=== PATIENT | male | born 1930 | race Caucasian/White ===

== ENCOUNTER → 2018-04-14 | Outpatient (CLI) | payer MEDICARE, OTHER | END | disposition home or self-care (01) | LOC: SHCH 11:01 | PROVIDERS: ATTEND Internal Medicine Cardiovascular Disease | DX: I34.0 Nonrheumatic mitral (valve) insufficiency (principal); I25.10 Atherosclerotic heart disease of native coronary artery without angina pectoris; I51.7 Cardiomegaly; Z95.1 Presence of aortocoronary bypass graft | CPT/HCPCS: 93306 ==

== ENCOUNTER → 2018-04-25 | Outpatient (CLI) | payer OTHER ==
[~2018-04-25] MED LIST: REGADENOSON 0.4 MG/5 ML PF SYG IVP SCH
== END | disposition home or self-care (01) ==
LOC: SHCH 08:02
PROVIDERS: ATTEND Internal Medicine Cardiovascular Disease
DX: I25.10 Atherosclerotic heart disease of native coronary artery without angina pectoris (principal); R06.00 Dyspnea, unspecified
CPT/HCPCS: 78452; 93017; 96374; A9500 ×2; J2785

== ENCOUNTER → 2018-05-29 | Outpatient (CLI) | payer OTHER | END | disposition home or self-care (01) | LOC: SHCH 07:37 | PROVIDERS: ATTEND Internal Medicine Cardiovascular Disease | DX: I71.02 Dissection of abdominal aorta (principal) | CPT/HCPCS: 93978 ==

== ENCOUNTER → 2018-07-11 | Outpatient (CLI) | payer OTHER ==
[~2018-07-11] VITALS: Ht 165.1 cm; Wt 65.5 kg
[~2018-07-11] MED LIST changes: +ASPI-1026 PO; +ATOR40TA71 PO; +CHOL100044 PO; +FINA5TAB41 PO; +LOSA25TA41 PO; +METO-408 PO; -REGADENOSON 0.4 MG/5 ML PF SYG IVP SCH; +SODIUM CHLORIDE 0.9% 500ML 500 ML IV SCH
[2018-07-11 10:49] LABS: BASOPHILS % (AUTO) 0.4 % (0.0-5.0); EOSINOPHILS % (AUTO) 2.1 % (0.0-8.0); LYMPHOCYTES % (AUTO) 28.2 % (21.0-51.0); MEAN CORPUSCULAR HEMOGLOBIN 31.9 pg (27.0-33.0); MEAN CORPUSCULAR HGB CONC 33.2 g/dL (32.0-36.0); MONOCYTES % (AUTO) 8.3 % (3.0-13.0); PLATELET COUNT (AUTO) 156 K/uL (130-400); RED BLOOD CELL COUNT(AUTO) 4.69 MIL/uL (4.50-6.20); RED CELL DISTRIBUTION WIDTH 13.8 % (11.0-15.5); WHITE BLOOD COUNT (AUTO) 6.9 K/uL (4.8-10.8)
[2018-07-11 10:56] LABS: APPEARANCE,URINE Clear (CLEAR); BILIRUBIN,URINE Negative (NEGATIVE); COLOR,URINE Yellow (YELLOW); GLUCOSE, URINE (UA) Negative (NEGATIVE); KETONES,URINE Negative (NEGATIVE); LEUKOCYTE ESTERASE ,URINE Negative (NEGATIVE); NITRATE,URINE Negative (NEGATIVE); OCCULT BLOOD,URINE Negative (NEGATIVE); PH,URINE 5.5 (5.0-8.0); PROTEIN,URINE Negative (NEGATIVE)
[2018-07-11 10:57] LABS: CREATININE 1.7 mg/dL (0.5-1.5); POTASSIUM 5.4 mmol/L (3.5-5.1)
[2018-07-11 11:00] VITALS: BP 121/84
[2018-07-11 11:09] LABS: PARTIAL THROMBOPLASTIN TIME 32.8 SEC (26.3-35.5); PROTHROMBIN TIME 10.5 SEC (9.6-11.6)
--- NOTE | 2018-07-14 11:09 | NUR ---
ABNORMAL LABS NOTIFIED BRIANNA STEWARD OF POTASSIUM 5.4, CREAT 1.7. ORDERS TO REPEAT BMP UPON ARRIVAL DAY OF PROCEDURE.
== END ==
LOC: EDSTATUS 10:00 → DAH 10:00
PROVIDERS: ATTEND Internal Medicine Cardiovascular Disease
DX: Z01.818 Encounter for other preprocedural examination (principal); I25.10 Atherosclerotic heart disease of native coronary artery without angina pectoris
CPT/HCPCS: 36415; 71045; 80048; 81003; 85025; 85610; 85730; 93005

== ENCOUNTER 2018-10-28 05:55 | Day surgery (SDC) | payer OTHER ==
[2018-10-24 12:08] LABS: BASOPHILS % (AUTO) 0.6 % (0.0-5.0); EOSINOPHILS % (AUTO) 1.5 % (0.0-8.0); HEMATOCRIT 40.9 % (42-54); LYMPHOCYTES % (AUTO) 25.2 % (21.0-51.0); MEAN CORPUSCULAR HEMOGLOBIN 32.9 pg (27.0-33.0); MEAN CORPUSCULAR HGB CONC 34.1 g/dL (32.0-36.0); MEAN CORPUSCULAR VOLUME 96.5 fL (79-99); NEUTROPHILS % (AUTO) 65.7 % (40.0-77.0); PLATELET COUNT (AUTO) 162 K/uL (130-400); RED BLOOD CELL COUNT(AUTO) 4.24 MIL/uL (4.50-6.20); RED CELL DISTRIBUTION WIDTH 13.6 % (11.0-15.5)
[2018-10-24 12:09] LABS: APPEARANCE,URINE Clear (CLEAR); BILIRUBIN,URINE Negative (NEGATIVE); COLOR,URINE Yellow (YELLOW); GLUCOSE, URINE (UA) Negative (NEGATIVE); KETONES,URINE Negative (NEGATIVE); LEUKOCYTE ESTERASE ,URINE Negative (NEGATIVE); NITRATE,URINE Negative (NEGATIVE); OCCULT BLOOD,URINE Negative (NEGATIVE); PROTEIN,URINE Negative (NEGATIVE); UROBILINOGEN,URINE 0.2 mg/dL (0.2-1.0)
[2018-10-24 12:12] VITALS: BP 155/86
[2018-10-24 12:17] LABS: CREATININE 1.8 mg/dL (0.5-1.5); POTASSIUM 5.2 mmol/L (3.5-5.1)
[2018-10-24 12:20] LABS: INR 0.97 (0.85-1.15); PARTIAL THROMBOPLASTIN TIME 32.1 SEC (26.3-35.5); PROTHROMBIN TIME 10.2 SEC (9.6-11.6)
--- NOTE | 2018-10-27 11:00 | NUR ---
ABNORMAL LABS ABNORMAL BMP RESULTS REPORTED TO BRIANNA STEWARD. ORDERS TO REPEAT BMP IN AM UPON ARRIVAL TO DAY PT AND START NS AT 150 ML/HR UNTIL PT GOES TO PROCEDURE.
[2018-10-28] VITALS (13 sets, daily range): BP systolic 102–165; BP diastolic 52–84
[~2018-10-28] VITALS: Ht 167.6 cm; Wt 64.9 kg
[~2018-10-28 05:55] MED LIST changes: -FINA5TAB41 PO; -LOSA25TA41 PO; -SODIUM CHLORIDE 0.9% 500ML 500 ML IV SCH
[2018-10-28] MEDS: SODIUM CHLORIDE 0.9% 1000ML 1,000 ML IV SCH ×2 (06:20→11:23)
[2018-10-28 06:28] LABS: CREATININE 1.9 mg/dL (0.5-1.5); POTASSIUM 4.2 mmol/L (3.5-5.1)
[2018-10-28] MEDS ORDERED: METO25TA6 PO (06:34)
--- NOTE | 2018-10-28 10:00 | NUR ---
LABS BUN /CREA LEVELS FROM TODAY REPORTED TO DR. Melissa ZUNIGA, NO FURTHER ORDERS GIVEN
[2018-10-28] MEDS ORDERED: LIDOCAINE HCL 1% 20 ML VIAL ONE (14:02)
[2018-10-28] MEDS ORDERED: IOHEXOL-350 50ML VIAL IV ONE (14:02)
[2018-10-28] MEDS ORDERED: HEPARIN SODIUM 1000UNIT/ML 10ML VIAL ONE (14:02)
[2018-10-28] MEDS ORDERED: MIDAZOLAM HCL 1 MG/ML 2ML VIAL ONE (14:03)
[2018-10-28] MEDS ORDERED: IOHEXOL 350 MG/ML 100ML INFUS..BTL IV ONE (14:03)
[2018-10-28] MEDS ORDERED: NITROGLYCERIN 5 MG/ML 10 ML VIAL IV ONE (14:03)
[2018-10-28] MEDS ORDERED: MEPERIDINE-PF 25 MG/ML SYG ONE (14:03)
--- NOTE | 2018-10-28 14:45 | NUR ---
PROCEDURE PT TAKEN TO TIME STAMP ASSEMBLER FOR PROCEDURE VIA BED,NO DISTRESS NOTED.
[2018-10-28] MEDS ORDERED: ATROPINE SULFATE 0.1 MG/ML 10 ML SYG IVP ONE (15:37)
[2018-10-28] MEDS ORDERED: SODIUM CHLORIDE 0.9% 1000ML 1,000 ML IV SCH (16:12)
--- NOTE | 2018-10-28 20:40 | NUR ---
PT DISCHARGED HOME, TOLERATING FOOD/FLUIDS, AMBULATING WELL, VOIDED LARGE AMOUNT PRIOR TO DISCHARGE, DENIES ANY SEVERE PAIN, NAUSEA, OR DIZZINESS. RIGHT FEMORAL CATH SITE REMAINS SOFT, NON-TENDER, DRESSING DRY, CLEAN AND INTACT. PT REMINDED OF ROUTINE AND EMERGENCY CARE OF CATH SITE. PT AND SPOUSE VERBALIZED UNDERSTANDING. PT AND SPOUSE REPORT NO FURTHER QUESTIONS AT THIS TIME. PRESCRIPTION FOR NEW MEDIATIONS GIVEN TO SPOUSE.
== END 2018-10-28 20:40 | disposition home or self-care (01) ==
LOC: DAH 05:55
PROVIDERS: ATTEND Internal Medicine Cardiovascular Disease
DX: I25.810 Atherosclerosis of coronary artery bypass graft(s) without angina pectoris (principal); I12.9 Hypertensive chronic kidney disease with stage 1 through stage 4 chronic kidney disease, or unspecified chronic kidney disease; N18.9 Chronic kidney disease, unspecified; I25.5 Ischemic cardiomyopathy; I71.4 Abdominal aortic aneurysm, without rupture; Z79.899 Other long term (current) drug therapy; Z88.8 Allergy status to other drugs, medicaments and biological substances; Z98.890 Other specified postprocedural states
CPT/HCPCS: 36415 ×2; 71045; 80048 ×2; 81003; 85025; 85610; 85730; 93005; 93459; A4606; C1760; C1769 ×2; C1894; J1644; J2175; J2250; J3490; J7030; Q9965 ×2; Q9967 ×2; 99156; 99157; J0461

== ENCOUNTER 2019-01-21 08:57 | Observation (INO) | payer OTHER ==
[2019-01-19 10:26] VITALS: BP 88/49
[2019-01-19 10:47] LABS: BASOPHILS % (AUTO) 0.7 % (0.0-5.0); EOSINOPHILS % (AUTO) 2.4 % (0.0-8.0); HEMATOCRIT 37.9 % (42-54); MEAN CORPUSCULAR HEMOGLOBIN 32.5 pg (27.0-33.0); MEAN CORPUSCULAR HGB CONC 33.1 g/dL (32.0-36.0); MEAN CORPUSCULAR VOLUME 98.2 fL (79-99); MONOCYTES % (AUTO) 9.6 % (3.0-13.0); NEUTROPHILS % (AUTO) 56.3 % (40.0-77.0); PLATELET COUNT (AUTO) 139 K/uL (130-400); RED BLOOD CELL COUNT(AUTO) 3.86 MIL/uL (4.50-6.20); RED CELL DISTRIBUTION WIDTH 14.1 % (11.0-15.5); WHITE BLOOD COUNT (AUTO) 6.7 K/uL (4.8-10.8)
[2019-01-19 10:59] LABS: CREATININE 1.9 mg/dL (0.5-1.5); POTASSIUM 5.4 mmol/L (3.5-5.1)
[2019-01-19 11:02] LABS: INR 0.95 (0.85-1.15); PARTIAL THROMBOPLASTIN TIME 30.8 SEC (26.3-35.5)
[2019-01-19 11:46] VITALS: BP 127/75
--- NOTE | 2019-01-20 10:01 | NUR ---
ABNORMAL LABS ABNORMAL LABS REPORTED TO DR. ZUNIGA POTASSIUM 5.4, CREAT 1.9. ORDERS TO REPEAT BMP IN AM UPON ARRIVAL AND DRAW BNP.
[~2019-01-21] VITALS: Ht 165.1 cm; Wt 64.8 kg
[2019-01-21] VITALS (14 sets, daily range): BP systolic 84–104; BP diastolic 44–74
[~2019-01-21 08:57] MED LIST changes: +ATOR20TA65 PO; -ATOR40TA71 PO; -CHOL100044 PO; +FINA5TAB41 PO; +FURO20TA4 PO; +HYDR10 PO; +ISOS30TA6 PO; -METO-408 PO; +METO25TA6 PO; +PRESERVISION PO
--- NOTE | 2019-01-21 09:22 | NUR ---
PATIENT ARRIVED PATIENT ARRIVED TO DAY PATIENT ACCOMPANIED BY SPOUSE. PROCEDURE VERIFIED AND CONFIRMED WITH PATIENT. HOSPITAL ROUTINE EXPLAINED TO PATIENT AND PATIENT VERBALIZED UNDERSTANDING. ALL QUESTIONS/CONCERNS ADDRESSED. BEDRAILS UPX2, BED IN LOWEST POSITION, CALL WINTERS IN REACH.
[2019-01-21 09:44] LABS: CREATININE 1.8 mg/dL (0.5-1.5); POTASSIUM 4.5 mmol/L (3.5-5.1)
[2019-01-21] MEDS ORDERED: LIDOCAINE HCL 1% MDV 50ML VIAL ONE (12:52)
[2019-01-21] MEDS ORDERED: BUPIVACAINE/PF 0.25% 30ML VIAL IJ ONE (12:52)
[2019-01-21] MEDS ORDERED: IODIXANOL 320 MG/ML 100 ML VIAL ONE (12:52)
[2019-01-21] MEDS ORDERED: CEFAZOLIN SODIUM 1 GM VIAL ONE (12:52)
--- NOTE | 2019-01-21 12:55 | NUR ---
PATIENT TRANSFERRED PATIENT TAKEN TO COMMERCIAL PARTS PROFESSIONAL VIA BED BY ALMA ROSA BELLA. SPOUSE INSTRUCTED TO STAY IN ROOM IN ORDER TO SPEAK WITH DR ZUNIGA AFTER PROCEDURE.
[2019-01-21] MEDS ORDERED: MEPERIDINE-PF 50 MG/ML SYG ONE (13:08)
[2019-01-21] MEDS ORDERED: MIDAZOLAM HCL 1 MG/ML 2ML VIAL ONE ×2 (13:08→14:26)
[2019-01-21] MEDS ORDERED: MEPERIDINE-PF 25 MG/ML SYG ONE (14:26)
[2019-01-21] MEDS ORDERED: OCTYL 2-CYANOACRYLATE 1 EACH TP ONE (14:42)
[2019-01-21] MEDS ORDERED: ONDANSETRON HCL 4 MG/2 ML VIAL IV PRN (15:15)
[2019-01-21] MEDS ORDERED: TEMAZEPAM 30 MG CAP PO PRN (15:15)
--- NOTE | 2019-01-21 15:35 | NUR ---
PATIENT RETURNED PATIENT BROUGHT BACK FROM IT SOFTWARE ENGINEER VIA BED BY YOMI NGUYEN RN AND PACHECO SIMENTAL RN. PATIENT AAOX3, RESPIRATIONS UNLABORED, VITAL SIGNS STABLE. PATIENT'S IN ROOM WITH PATIENT. DRESSING TO LEFT UPPER CHEST WALL IS DRY AND INTACT. COVERED WITH PRESSURE DRESSING AND PATIENT'S ARM IN SLING. PATIENT INSTRUCTED ON ACTIVITY AND LEFT ARM RESTRICTIONS. VITAL SIGNS STABLE, DENIES ANY PAIN, RESPIRATIONS UNLABORED. BED RAILS UPX2, CALL WINTERS IN REACH AND BED IN LOWEST POSITION.
--- NOTE | 2019-01-21 15:40 | NUR ---
ICE PACK APPLIED TO LEFT CHEST WALL ORDERED
--- NOTE | 2019-01-21 18:15 | NUR ---
REPORT/HANDOFF COMMUNICATION CALLED REPORT TO ALMA ROSA LE USING SBAR. ALL QUESTIONS/CONCERNS ADDRESSED.
--- NOTE | 2019-01-21 18:40 | NUR ---
PATIENT TRANSFERRED PATIENT TAKEN TO ROOM 203 VIA BED BY MYSELF AND ALMA ROSA BRANDON. PATIENT LEFT IN ROOM 203 WITH NURSE (ALMA ROSA LE) AND SELIN. PATIENT AAOX3, RESPIRATIONS UNLABORED. DRESSING DRY AND INTACT WITH SLING IN PLACE.
--- NOTE | 2019-01-21 18:45 | NUR ---
RECEIVED FROM DAYPT. VIA BED. AAOX3, RESP.'S EVEN AND UNLABORED. DENIES ANY CURRENT SOB. LEFT UPPER CHEST WITH PRESSURE DRSG IN PLACE, D/I; AREA SOFT, NO ECCHYMOSIS OR HEMATOMA NOTED. NO CREPITUS NOTED. LEFT ARM SLING IN PLACE. LEFT RADIAL PULSE STRONG; GOOD CMS. CALL LIGHT WITHIN REACH. BED LOW, SIDE RAILS UP X3. PROVIDED WITH ICE WATER AND APPLE JUICE PER PT.'S REQUEST. ROOM DOOR OPEN, VISIBLE FROM NURSE'S STATION.
[2019-01-21] MEDS: ACETAMINOPHEN 325 MG TAB PO PRN (20:05)
[2019-01-21] MEDS ORDERED: HYDRALAZINE HCL 10 MG TABLET PO SCH (21:00)
[2019-01-21] MEDS ORDERED: ATORVASTATIN CALCIUM 20 MG TABLET PO SCH (21:00)
[2019-01-21] MEDS ORDERED: FINASTERIDE 5 MG TABLET PO SCH (21:00)
[2019-01-21] MEDS: CEFAZOLIN SODIUM 1 GM VIAL IVP SCH (21:42)
[2019-01-21] MEDS: METOPROLOL TARTRATE 25 MG TAB PO SCH (21:43)
--- NOTE | 2019-01-21 21:51 | NUR ---
Due meds given and pt requested sleeping meds.Ice pack placed on left chest incisional site.Pt. tony chestpain .Appears calm and comfortable,pt. watching TV but verbalized he is going to sleep.Instructed to use call light for assistance which is placed within his reach and he demonstrated understanding. and BURGLAR ALARM MECHANIC Diane lew of pt. admission.
[2019-01-22 00:14] VITALS: BP 97/60
--- NOTE | 2019-01-22 02:31 | NUR ---
Pt. reported he sustained skin tear on to his left hand as he walked to the bathroom he said.Reminded pt to use call light if he needs assistance and he demonstrated understanding.Site cleansed and dressing applied to left hand.Bed exit alarm activated.
[2019-01-22 04:35] VITALS: BP 129/76
[2019-01-22] MEDS ORDERED: CEFAZOLIN SODIUM 1 GM VIAL ONE (06:45)
[2019-01-22] MEDS: CEFAZOLIN SODIUM 1 GM VIAL IVP SCH (06:46)
--- NOTE | 2019-01-22 07:32 | NUR ---
Pt. slept for the most part of the night,report given to incoming NOD using SBAR,all questions answered
--- NOTE | 2019-01-22 07:38 | NUR ---
Inna WATSON PA-C, IN ROOM SPEAKING WITH PT. RE:PLAN OF CARE. QUESTIONS ANSWERED BY Inna WATSON PA-C.
[2019-01-22 07:56] VITALS: BP 133/85
[2019-01-22] MEDS ORDERED: PRESERVISION PO SCH (09:00)
[2019-01-22] MEDS ORDERED: FUROSEMIDE 20 MG TABLET PO SCH (09:00)
[2019-01-22] MEDS ORDERED: ISOSORBIDE MONO 30MG TAB SR PO SCH (09:00)
[2019-01-22] MEDS ORDERED: ASPIRIN 325 MG TABLET PO SCH (09:00)
[2019-01-22] MEDS: METOPROLOL TARTRATE 25 MG TAB PO SCH (09:11)
[2019-01-22] MEDS: ACETAMINOPHEN 325 MG TAB PO PRN (09:23)
--- NOTE | 2019-01-22 11:14 | NUR ---
NOTIFIED Inna WATSON PA-C, RE:PACED RHYTHM AT 130. ORDERS RECEIVED.
--- NOTE | 2019-01-22 11:25 | NUR ---
RECEIVED CALL FROM RENAE PINZON [employer] REP. INFORMED OF INTERROGATION ORDER, VERBALIZED UNDERSTANDING.
[2019-01-22 11:53] VITALS: BP 98/59
--- NOTE | 2019-01-22 15:00 | NUR ---
AICD DRSG CHANGED ORDERED. APPLIED NEW NON-ADHERENT GAUZE AND COVERED WITH CLEAR OPSITE.
--- NOTE | 2019-01-22 15:25 | NUR ---
HL REMOVED, CATHETER INTACT. DISCHARGE INSTRUCTIONS GIVEN TO PT. AND SPOUSE AT BEDSIDE, VERBALIZED MUTUAL UNDERSTANDING.
--- NOTE | 2019-01-22 15:45 | NUR ---
DISCHARGE HOME WITH BELONGINGS VIA W/C ACCOMPANIED BY SPOUSE AND Angle VERGARA, PCP.
== END 2019-01-22 14:50 | disposition home or self-care (01) ==
LOC: DAH 08:57 → DAHIP 08:58 → DAH 08:58 → 2AH 18:46
PROVIDERS: ADMIT Internal Medicine; ATTEND Internal Medicine
DX: I25.5 Ischemic cardiomyopathy (principal); I25.10 Atherosclerotic heart disease of native coronary artery without angina pectoris; I49.1 Atrial premature depolarization; I49.3 Ventricular premature depolarization; I21.9 Acute myocardial infarction, unspecified; I44.7 Left bundle-branch block, unspecified; I10 Essential (primary) hypertension; E78.5 Hyperlipidemia, unspecified; Z95.1 Presence of aortocoronary bypass graft; Z95.810 Presence of automatic (implantable) cardiac defibrillator; Z90.49 Acquired absence of other specified parts of digestive tract; Z90.89 Acquired absence of other organs; Z79.82 Long term (current) use of aspirin; Z79.899 Other long term (current) drug therapy
CPT/HCPCS: 33225; 33249; 36415 ×2; 71046; 80048 ×2; 83880; 85025; 85610; 85730; 93005; 96374; 96376; A4215; A4216; A4221; A4222; A4223 ×3; A4606; C1769 ×2; C1882; C1894; C1895 ×2; C1900; G0378 ×25; J0690 ×3; J2175 ×2; J2250 ×2; J3490 ×2; Q9967; 99156; 99157

== ENCOUNTER → 2022-07-19 | Outpatient (CLI) | payer OTHER ==
[~2022-07-19] MED LIST changes: +AEC81 PO; -ASPI-1026 PO; +ATOR10 PO; -ATOR20TA65 PO; -FURO20TA4 PO; +FURO40TA5 PO; -HYDR10 PO; -ISOS30TA6 PO; -PRESERVISION PO
== END | disposition home or self-care (01) ==
LOC: SHCH 08:04
PROVIDERS: ATTEND Internal Medicine Cardiovascular Disease
DX: I71.40 Abdominal aortic aneurysm, without rupture, unspecified (principal); I70.0 Atherosclerosis of aorta; Z95.828 Presence of other vascular implants and grafts
CPT/HCPCS: 93978